=== PATIENT | female | born 1985 | race Caucasian/White ===

== ENCOUNTER 2016-07-23 17:49 | Emergency (ER) | payer OTHER ==
[~2016-07-23] VITALS: Ht 157.5 cm; Wt 77.3 kg
[~2016-07-23 17:49] MED LIST: HCTZ; OXYC1TAB24 PO
[2016-07-23 17:51] VITALS: BP 128/89; RESP 20; O2SAT 100
[2016-07-23] MEDS ORDERED: Ondansetron 2 mg/mL 2 mL Inj IVPUSH PRN (19:10)
[2016-07-23] MEDS ORDERED: 0.9% Sodium Chloride 1,000 ML IV ONE (19:10)
--- NOTE | 2016-07-23 19:14 | ED.REPORT ---
HPI-General Illness Date of Service Jul 23, 2016 ED Provider: Srinivas Gary MD Na Godinez is a 31 year old woman with a PMH of HTN and tubal ligation who presents with a 2 day history of sore throat, nausea and vomiting, and subjective fevers. She went to the urgent care earlier today for these symptoms and rapid strep test revealed she has strep throat for which she was prescribed Penicillin. However, she states that since the urgent care visit 4 hours ago she has been feeling increasingly miserable and have increased difficulty with swallowing. She has thrown up 3 times today, which was greatly improved with Zofran given to her in the urgent care. Nursing Notes Stated Complaint: STREP THROAT/PAINFUL Chief Complaint: ENT & Mouth Nursing Notes Reviewed: Yes Allergies: Coded Allergies: codeine (Verified Allergy, Severe, INTENSELY ITCHY, TOLERATES OXYCODONE, 04/07/16) prochlorperazine (Verified Allergy, Unknown, 04/07/16) promethazine HCl (Verified Allergy, Unknown, 04/07/16) Scheduled ([Hctz]) DAILY PT UNABLE TO RECALL DOSE Scheduled PRN oxyCODONE-Acetaminophen 5-325 mg (oxyCODONE-Acetaminophen 5-325 mg) 1 Each Tablet 1-2 TAB PO Q6H PRN PRN For Pain General Time Seen by MD: 19:00 Chief Complaint Sore throat Hx Obtained From: Patient Arrived By: Walk-in Sudden in Onset?: No Onset Occurred: 2 days ago Symptom Duration: Since onset Location: : Mouth Quality: Burning Severity: Current: Moderate Severity: Maximum: Moderate Recent Healthcare: No recent doctor visit Similar Sx Previous: Yes Similar Sx Previous: No Past Medical History Past Medical History HTN Reports: Hypertension Past Surgical History Reports: Tubal ligation Smoking History Former Smoker Social History Alcohol Use: "Social" Drug Use: Denies drug use Other Social History: Good social support, , Lives with children Ambulatory Status Independent Review of Systems Full Review of Systems Constitutional: Reports: Weakness - generalized Ears / Nose / Throat: Reports: Sore throat Respiratory: Reports: Non-productive cough GI: Reports: Nausea, Vomiting Complete sys rev & neg: except as marked. Physical Exam Gen: A/O x3 ill appearing woman in mild acute distress secondary to sore throat Neck: Supple, non tender, mild cervical lymphadenopathy HEENT: Grossly erythematous pharyngeal mucosa with sparse lesions, PERRL, mucous membranes slightly dry, EOMI, no scleral icterus CV: RRR, no murmurs rubs or gallops Resp: Lungs CTA BL, no wheezing rales or rhonchi Abdomen: Soft, non tender, no organomegaly Extr: no cyanosis clubbing or edema Neuro: CN 2-12 grossly intact, no focal neurologic deficit. Vital Signs Vital Signs Date Time Temp Pulse Resp B/P Pulse Ox O2 Delivery O2 Flow Rate FiO2 07/23/16 22:44 37.3 104 16 132/86 100 Room Air 07/23/16 21:43 37.3 104 16 132/86 100 Room Air 07/23/16 17:51 37.0 102 20 128/89 100 Room Air Initial VS: Reviewed, Vital signs abnormal (mild tachycardia) Re-Eval/Medical Decision Med Decision/Clinical Course This is an otherwise healthy 31 year old woman with Strep throat as diagnosed by rapid strep in the urgent care. She is presenting essentially for symptomatic care. She was given 1L NS, 4 mg Zofran IV, and Viscous lidocaine for supportive care. Patient was in significant pain so was given a single dose of Vicodin and sent out with a pre pack of further Vicodin for pain management. We will discharge her with a pre pack of 20 Vicodin for pain relief. The patient was given follow up instructions and return precautions prior to DC. Counseled Regarding: Diagnosis, Need for follow-up, When/why to return to ED Discharge & Departure Shift Change Sign-Out Patient Care Transferred: No Discussed Complaint(s): Yes Response to Therapy: Improved Primary Impression: Streptococcal sore throat Disposition: Home Discharge Condition All VS Reviewed: Yes Condition: Stable Patient Instructions: Strep Throat (ED) Additional Instructions: You have a bad case of strep throat, it should not be imminently dangerous just miserable. You already have the appropriate antibiotics Referrals: Cathleen Mukherjee DO (PCP) Attending Statement Seen with Dr. Sam on July 22. I agree with above copies to: Cathleen Mukherjee David E DO Jul 23, 2016 19:14 Srinivas Gary MD Jul 24, 2016 01:37
[2016-07-23] MEDS ORDERED: HYDROcodone-APAP 5-325 mg Tablet PO ONE (20:25)
[2016-07-23] MEDS ORDERED: Dexamethasone 4 mg/mL Inj IVPUSH ONE (20:30)
[2016-07-23] MEDS ORDERED: _oxyCODONE/APAP 5-325 mg Tablet PO PRN (20:40)
[2016-07-23 21:43] VITALS: BP 132/86; PULSE 104; RESP 16; O2SAT 100
[2016-07-23 22:44] VITALS: BP 132/86; PULSE 104; RESP 16; O2SAT 100
[2016-07-24] MEDS ORDERED: Sodium Chloride LOK Flush 10 mL Syringe IVFLUSH SCH (00:30)
== END 2016-07-23 21:43 | disposition home or self-care (01) ==
LOC: SED 17:49
DX: J02.0 Streptococcal pharyngitis (principal); I10 Essential (primary) hypertension; Z87.891 Personal history of nicotine dependence; Z88.5 Allergy status to narcotic agent; Z88.8 Allergy status to other drugs, medicaments and biological substances
CPT/HCPCS: 96361; 96374; 96375; 99284; J1100; J2405; J7030

== ENCOUNTER 2016-09-16 19:40 | Emergency (ER) | payer OTHER ==
[~2016-09-16] VITALS: Ht 157.5 cm; Wt 80.5 kg
[2016-09-16 19:54] VITALS: BP 137/93; PULSE 75; RESP 16; O2SAT 99
[2016-09-16 20:30] LABS: BASOPHILS % (AUTO) 0.4 % (0-3); EOSINOPHILS % (AUTO) 1.1 % (0-5); MONOCYTES % (AUTO) 7.8 % (4-12); Mean Corpuscular Hemoglobin 27.2 pg (27.0-35.0); NEUTROPHILS % (AUTO) 59.1 % (40-74); Platelet Count 321 bil/L (150-400)
--- NOTE | 2016-09-16 20:39 | ED.REPORT ---
HPI-General Illness Date of Service September 16, 2016 ED Provider: Marlon Edwards MD Patient is a 31 year old woman with a history of hypertension, previous kidney stones and tubal ligation who presents to the ED complaining of right flank pain that began a few days ago. Patient reports identical symptoms during her previous kidney stones (2009). Associated symptoms include subjective fever, nausea, right flank pain, inguinal pain, urinary frequency, hematuria and bladder pressure. Flank pain does not radiate. Patient was seen at Urgent Care yesterday and was prescribed 7 days of Bactrim for suspected bladder infection. She denies dysuria. Nursing Notes Stated Complaint: KIDNEY PAIN Chief Complaint: Female Abdominal Pain Nursing Notes Reviewed: Yes Allergies: Coded Allergies: codeine (Verified Allergy, Severe, INTENSELY ITCHY, TOLERATES OXYCODONE, ) prochlorperazine (Verified Allergy, Unknown, 09/16/16) promethazine HCl (Verified Allergy, Unknown, 09/16/16) Scheduled ([Hctz]) DAILY PT UNABLE TO RECALL DOSE Scheduled PRN Hydrocodone-Acetaminophen 5-325 mg (Hydrocodone-Acetaminophen 5-325 mg) 1 Each Tablet 1 TABLET PO Q4H PRN PRN For Pain oxyCODONE-Acetaminophen 5-325 mg (oxyCODONE-Acetaminophen 5-325 mg) 1 Each Tablet 1-2 TAB PO Q6H PRN PRN For Pain General Time Seen by MD: 20:38 Chief Complaint Other (R Flank Pain) Hx Obtained From: Patient Arrived By: Walk-in Sudden in Onset?: No Onset Occurred: 3 days ago Symptom Duration: Since onset Location: : Back Quality: Painful Radiation: : Does not radiate Severity: Current: Moderate Severity: Maximum: Moderate Associated with: Reports: Abdominal pain, Fever (subjective) Pertinent Negative: Pt denies other symptoms Recent Healthcare: No recent hospitalization, Recent doctor visit Past Medical History Past Medical History Kidney Stones Bladder infections Reports: Hypertension Past Surgical History Reports: Tubal ligation Smoking History Former Smoker Social History Alcohol Use: "Social" Drug Use: Denies drug use Other Social History: Good social support, , Lives with children Ambulatory Status Independent Review of Systems Full Review of Systems Constitutional: Reports: Fever (Subjective) GI: Reports: Abdominal pain, Nausea Female: Reports: Flank pain (reports right flank pain), Hematuria, Urinary frequency, Urination increased, Denies: Dysuria Complete sys rev & neg: except as marked. Physical Exam Vital Signs Vital Signs Date Time Temp Pulse Resp B/P Pulse Ox O2 Delivery O2 Flow Rate FiO2 09/16/16 23:21 36.1 69 16 124/83 98 Room Air 09/16/16 19:54 36.2 75 16 137/93 99 Room Air Initial VS: Reviewed Neck: Supple, Non-tender, Full range of motion Extremities: Vascular intact, Neuro intact, No swelling, No tenderness Skin: Warm, Dry, No cyanosis Neurologic: Alert, Oriented, Nonfocal Psychiatric: Mood/affect normal, Behavior normal, Normal thought content General/Constitutional: Awake, Alert, No acute distress Head / Eyes: Atraumatic, Normocephalic, PERRL Respiratory / Chest: Atraumatic, Breath sounds NL, Breath sounds = bilat, No respiratory distress Cardiovascular: Heart rate NL, Regular rhythm, Heart sounds NL, No gallop, No murmurs, No rubs, Peripheral circulation NL (Good distal pulses), Pulses = bilaterally Abdomen: Atraumatic, Soft, No guarding, No rebound, No distention Tenderness/Guarding/Rebound: Positive: Tender suprapubic (Mild ), Negative: Rigid to palpation Back: Atraumatic Flank / Spine / Paraspinal: Positive: Flank tender L (Mild percussive tenderness) Interpretation & Diagnostics Zofran Toradol IV Fluids Lab Results Interpretation Result Diagram: 09/16/16201409/16/16 2015 Test 09/16/16 20:15 09/16/16 20:28 09/16/16 22:42 White Blood Count 7.0th/mm3 (3.8-10.1) Red Blood Count 4.23mil/mm3 (3.90-5.20) Hemoglobin 11.5g/dL (12.0-15.6) Hematocrit 34.7% (35.0-46.0) Mean Corpuscular Volume 82.0fL (81-100) Mean Corpuscular Hemoglobin 27.2pg (27.0-35.0) Mean Corpuscular Hemoglobin Concent 33.1% (32.0-37.0) Red Cell Distribution Width 13.8% (12.3-15.4) Platelet Count 321bil/L (150-400) Neutrophils (%) (Auto) 59.1% (40-74) Lymphocytes (%) (Auto) 31.5% (14-46) Monocytes (%) (Auto) 7.8% (4-12) Eosinophils (%) (Auto) 1.1% (0-5) Basophils (%) (Auto) 0.4% (0-3) Sodium Level 139mEq/L (134-144) Potassium Level 4.0mEq/L (3.5-5.2) Chloride Level 104mEq/L (97-108) Carbon Dioxide Level 21mmol/L (18-29) Blood Urea Nitrogen 15mg/dL (6-20) Creatinine 0.78mg/dL (0.57-1.00) Estimat Glomerular Filtration Rate 124mL/min (>59) Glucose Level 89mg/dL (60-99) Calcium Level 9.5mg/dL (8.5-10.1) Magnesium Level 1.8mg/dL (1.6-2.6) Total Bilirubin 0.6mg/dL (0.0-1.2) Aspartate Amino Transf (AST/SGOT) 23U/L (0-50) Alanine Aminotransferase (ALT/SGPT) 9U/L (0-32) Alkaline Phosphatase 64U/L (25-150) Total Protein 7.3g/dL (6.4-8.4) Albumin 4.1g/dL (3.4-5.0) Lipase 30U/L (13-60) Human Chorionic Gonadotropin, Qual Negative (Negative) Urine Color Yellow (YELLOW) Urine Appearance Clear (CLEAR,HAZY) Urine pH 6.5 (5.0-8.0) Urine Specific [place] 1.010 (1.003-1.035) Urine Protein Negativemg/dL (NEG,TRACE) Urine Glucose (UA) Negativemg/dL (NEGATIVE) Urine Ketones Negativemg/dL (NEGATIVE) Urine Occult Blood Negative (NEGATIVE) Urine Nitrite Negative (NEGATIVE) Urine Bilirubin Negative (NEGATIVE) Urine Urobilinogen Normalmg/dL (NORMAL) Urine Leukocyte Esterase Small (NEGATIVE) Urine RBC 0-2/hpf (0-2) Urine WBC 6-10/hpf (0-5) Urine Epithelial Cells Moderate/hpf (NONE-MOD) Urine Crystals None seen (NONE SEEN) Urine Bacteria Few/hpf (NONE-FEW) Urine Hyaline Casts None/lpf (NONE) Urine Granular Casts None seen (NONE SEEN) Urine Waxy Casts None seen (NONE SEEN) Urine Red Blood Cell Casts None seen (NONE SEEN) Urine White Blood Cell Casts None seen (NONE SEEN) Urine Mucus None seen (None Seen) Urine Trichomonas None seen (NONE SEEN) Urine Yeast None (NONE SEEN) Urinalysis Comment None Urine Culture Reflexed Indicated Hold Urine Received (Received) Hold Purple Top Tube Received (Received) Hold Blue Top Tube Received (Received) Hold Red Top Tube Received (Received) Hold Grayling Top Tube Received (Received) Hold Roe Top Tube Received (Received) Re-Eval/Medical Decision Med Decision/Clinical Course Patient is a 31 year old woman with a history of hypertension, previous kidney stones and tubal ligation who presents to the ED complaining of right flank pain that began a few days ago. Patient reports identical symptoms during her previous kidney stones (2009). Associated symptoms include subjective fever, nausea, right flank pain, inguinal pain, urinary frequency, hematuria and bladder pressure. Flank pain does not radiate. Patient was seen at Urgent Care yesterday and was prescribed 7 days of Bactrim for suspected bladder infection. She denies dysuria. Here in the emergency department the patient is afebrile stable vital signs and examination as above. Patient was treated with Zofran, IV fluids and Toradol for pain. She reported significant symptom improvement. CT Abd/pelvis without contrast IMPRESSION: Negative for obstructive uropathy. Punctate renal stones. No free air, bowel obstruction or mesenteric inflammation. Appendix not identified. LABS CBC - unremarkable CMP - unremarkable negative lipase within normal limits UA Small leuko esterase Few bacteria Moderate epithelium 0-2 RBC 0-10 WBC While patient does have likely urinary tract infection she is currently on a 7 day course of Bactrim. She does have kidney stones however there is no evidence for hydronephrosis, ureteral stone and my suspicion for infected kidney stone is relatively low as she is nontoxic appearing, afebrile with relatively benign examination. She is advised to complete her full course of antibiotics and I prescribed her pain medication to go home with. She is referred to urology for further evaluation. I discussed with her the risks associated with infected kidney stone, sepsis and that she could become very ill. She is advised to return for any concerning symptoms symptoms which I reviewed in detail with her. Prior to discharge follow-up and return precautions were reviewed in detail with the patient who verbalized understanding and agreement with the plan. The patient was discharged in stable condition. Time of Eval: 22:49 Patient Status: Condition improved Re-Evaluation/Progress Note: Patient is rechecked. She is informed of her CT results and diagnosis. All questions are addressed. She understands and agrees with the intended treatment plan. Counseled Regarding: Diagnosis, Lab results, Need for follow-up, When/why to return to ED Discharge & Departure Primary Impression: Nephrolithiasis Additional Impressions: Urinary tract infection Urinary tract infection type: site unspecified Hematuria presence: with hematuria Qualified Code: N39.0 - Urinary tract infection, site not specified Flank pain Disposition: Home Discharge Condition All VS Reviewed: Yes Condition: Improved Patient Instructions: Kidney Stones (ED), Urinary Tract Infection in Women (ED) Additional Instructions: Thank you for seeking care at the emergency room. It is difficult for us to make definitive diagnoses in the ED but we believe that you are experiencing kidney stones and you have likely already passed a few of the stones. Our primary goal today in the ED was to evaluate you for any life-threatening conditions. Your evaluation was reassuring. You will be discharged with a prescription for Perry*. Please take as directed. Make sure to get plenty of rest. You should follow-up with your primary doctor in the next week and see referral to urology and schedule an appointment with them in the next week. You should return to the ED immediately if you develop any fevers, vomiting, worsening pain, lightheadedness, weakness or any other concerning signs or symptoms. Thank you for letting us partake in your care today. *You have been prescribed a narcotic for pain relief. These drugs are usually combined with acetaminophen (Tylenol#3, Percocet, Darvocet, Anexsia, Vicodin) or aspirin (Empirin#3, Percodan, Synalogs-DC) for increased effect. Narcotics act on the central nervous system to reduce pain; they also impair mental alertness and physical abilities. We advise you not to drink alcohol, drive a car, or operate dangerous equipment when you are taking these drugs. You can lessen stomach irritation from your medicine by taking it with meals or a full glass of water. Common side effects of narcotics are: Nausea and vomiting , heartburn, constipation, dizziness, sleepiness, and mood changes. If you have bothersome side effects or symptoms of an allergic reaction (itching, hives, rash), stop taking your medicine and call your doctor or the emergency room right away. Please keep your narcotic medicine well out of the reach of children. Referrals: Cathleen Mukherjee DO (PCP) Shanell Cordon MD Scribe Attestation Portions of this note were transcribed by Pilar Cifuentes. I, Dr. Edwards personally performed the history, physical exam and medical decision-making; I reviewed and confirmed the accuracy of the information in the transcribed note. Signed by: Viviane Stevens, 09/16/16 [id number]. copies to: Cathleen Mukherjee Beck O MD September 16, 2016 20:39 PILAR CIFUENTES September 16, 2016 21:59
[2016-09-16 20:51] LABS: APPEARANCE,URINE CLEAR (CLEAR,HAZY); COLOR,URINE YELLOW (YELLOW); OCCULT BLOOD,URINE NEGATIVE (NEGATIVE); PH,URINE 6.5 (5.0-8.0); UROBILINOGEN,URINE NORMAL (NORMAL)
[2016-09-16 20:53] LABS: Magnesium 1.8 mg/dL (1.6-2.6)
[2016-09-16] MEDS ORDERED: Ondansetron 2 mg/mL 2 mL Inj IVPUSH ONE (22:00)
[2016-09-16] MEDS ORDERED: 0.9% Sodium Chloride 1,000 ML IV ONE (22:00)
[2016-09-16] MEDS ORDERED: HYDR-4003 PO (22:48)
[2016-09-16 23:21] VITALS: BP 124/83; PULSE 69; RESP 16; O2SAT 98
--- NOTE | 2016-09-17 07:18 | DRSVH ---
PROCEDURE: CT KUB ([id number]) INDICATIONS: kidney stone, flank pain TECHNIQUE: Noncontrast 5 mm thick sections acquired from the diaphragms to the symphysis. 5 mm thick coronal an d sagittal reformats were then performed. For radiation dose reduction, the following was used: aut omated exposure control, adjustment of mA and/or kV according to patient size. COMPARISON: [facility], CT, ABD/PELVIS W/CON (PNL), 08/27/2012, 19:59. FINDINGS: Image quality: Excellent. Lung bases: Lung bases are clear. Heart size is normal. Urinary system: Both kidneys are normal in size. Punctate nonobstructing right renal calculus.. No hydronephrosis or perinephric fat stranding. Both ureters appear non-dilated throughout their expect ed courses. Bladder wall thickness is normal; no calcified bladder stones. Other solid organs: Liver and spleen are normal in size. Gallbladder is contracted but otherwise no rmal. Pancreas is normal in contours. No adrenal nodules. Peritoneum and bowel: Unenhanced bowel loops demonstrate normal wall thickness and caliber. No free fluid or air. The appendix not identified. There are no secondary signs of acute appendicitis. Nodes and vessels: No retroperitoneal or mesenteric adenopathy by size criteria. Aorta and inferior vena cava are normal in caliber. Abdominal wall: No ventral hernias. Pelvis: No free pelvic fluid. No inguinal hernias or adenopathy. Bones: No suspicious bony lesions. No vertebral body compression fractures. IMPRESSION: 1. Normal abdomen and pelvis CT. Punctate right renal calculus with no obstructing renal or ureteral calculi. 2. The appendix is not identified. 3. There are no discrepancies with the preliminary report. Dictated by: Sergo Tiwari M.D. on 09/17/2016 at 7:06 Approved by: Sergo Tiwari M.D. on 09/17/2016 at 7:11
== END 2016-09-16 23:23 | disposition home or self-care (01) ==
LOC: SED 19:40
DX: N20.0 Calculus of kidney (principal); N39.0 Urinary tract infection, site not specified; I10 Essential (primary) hypertension; Z87.891 Personal history of nicotine dependence; Z88.5 Allergy status to narcotic agent; Z88.8 Allergy status to other drugs, medicaments and biological substances; Z87.442 Personal history of urinary calculi
CPT/HCPCS: 36415; 74176; 80053; 81000; 81025; 83690; 83735; 84703; 85025; 87086; 87088; 96361; 96374; 96375; 99285; J1885; J2405; J7030